=== PATIENT | male | born 1950 | race Caucasian/White ===

== ENCOUNTER 2019-05-19 23:35 | Emergency (ER) | payer MEDICAID ==
[~2019-05-19] VITALS: Ht 172.7 cm; Wt 68.5 kg
[~2019-05-19 23:35] MED LIST: CLINDAMYCIN150 M1 PO; ECO81 PO; GLU500 PO; LAC PO; LOP600 PO; METOPROLOL TART25 M1 PO; V5 PO; ZOCOR40 MG PO
[2019-05-19 23:42] VITALS: Ht 172.7 cm; Wt 68.5 kg
[2019-05-20 01:53] LABS: BASOPHIL % 0.4 % (0-2); PLATELET COUNT 245 x10^3mcL (130-400)
[2019-05-20 02:19] LABS: CALCIUM 8.8 mg/dL (8.5-10.1); CARBON DIOXIDE 28.8 mmol/L (21-32); CHLORIDE SERUM 96 mmol/L (98-107); CREATININE SERUM 0.9 mg/dL (0.7-1.3); GFR1 > 60 mL/min; GLUCOSE SERUM 202 mg/dL (74-106); POTASSIUM SERUM 3.8 mmol/L (3.5-5.1); SODIUM SERUM 131 mmol/L (136-145)
[2019-05-20 06:08] VITALS: BP 142/85
== END 2019-05-20 06:08 | disposition home or self-care (01) ==
LOC: ED 23:35
PROVIDERS: Emergency Medicine
DX: J40 Bronchitis, not specified as acute or chronic (principal); E11.9 Type 2 diabetes mellitus without complications
CPT/HCPCS: 36415; 87804; J7030; Q0092

== ENCOUNTER 2019-05-21 09:38 | Emergency (ER) | payer MEDICAID ==
[~2019-05-21] VITALS: Ht 172.7 cm; Wt 69.4 kg
[2019-05-21 09:42] VITALS: Ht 172.7 cm; Wt 69.4 kg
== END 2019-05-21 11:08 | disposition home or self-care (01) ==
LOC: ED 09:38
DX: J40 Bronchitis, not specified as acute or chronic (principal); E11.9 Type 2 diabetes mellitus without complications
CPT/HCPCS: J7512